=== PATIENT | male | born 1955 | race Hispanic/Latino ===

== ENCOUNTER 2017-12-12 07:28 | Outpatient (CLI) | payer BC, OTHER ==
--- NOTE | 2017-12-12 09:03 | XRay Report ---
Bilateral hips and pelvis. History: Bilateral hip pain. Findings Mild arthritic changes hip joints superior-lateral aspect bilaterally. No fracture or dislocation. No soft tissue calcification. Cortical irregularity greater trochanter probably related to chronic low-grade injury. Impression: Arthritic changes right and left hip.
== END 2017-12-12 07:29 | disposition home or self-care (01) ==
LOC: SPVIMAG 07:28
PROVIDERS: ATTEND Orthopaedic Surgery Sports Medicine
DX: M16.0 Bilateral primary osteoarthritis of hip (principal)
CPT/HCPCS: 73521